=== PATIENT | female | born 1960 ===

== ENCOUNTER 2016-09-24 16:58 | Inpatient (IN) | payer MEDICAID ==
[~2016-09-24] VITALS: Ht 170.2 cm; Wt 145.1 kg
[~2016-09-24 16:58] MED LIST: ACID CONTROL150 MG PO; ASPIRIN81 MG PO; CATAPRES0.2 MG PO; CLONIDINE HCL0.2 MG PO; COREG12.5 MG PO; GLUCOPHAGE1000 MG PO; GLUCOTROL10 MG PO; LANTUS100 UNIT/1 SUBCUT; LASIX40 MG PO; LASIX80 MG PO; LISINOPRIL40 MG PO; MUCINEX600 MG PO; NORVASC10 MG PO; PLAVIX75 MG PO; PRAVACHOL40 MG PO; ULTRAM50 MG PO
[2016-09-27] MEDS ORDERED: CLEOCIN150 MG PO (14:47)
[2016-09-27] MEDS ORDERED: TAMIFLU75 MG PO (14:48)
[2016-09-27] MEDS ORDERED: TYLENOL325 MG PO ×2 (15:09→15:14)
== END 2016-09-27 16:45 | disposition short-term general hospital (02) | DRG 871 ==
LOC: ER 16:58 → IP 20:33
PROVIDERS: ADMIT Family Medicine
DX: A41.9 Sepsis, unspecified organism (principal); J18.9 Pneumonia, unspecified organism; Z68.43 Body mass index [BMI] 50.0-59.9, adult; E11.9 Type 2 diabetes mellitus without complications; R09.02 Hypoxemia; R11.2 Nausea with vomiting, unspecified; I25.10 Atherosclerotic heart disease of native coronary artery without angina pectoris; I10 Essential (primary) hypertension; E78.5 Hyperlipidemia, unspecified; M19.90 Unspecified osteoarthritis, unspecified site; K21.9 Gastro-esophageal reflux disease without esophagitis; E66.9 Obesity, unspecified; Z88.5 Allergy status to narcotic agent; Z88.4 Allergy status to anesthetic agent; Z91.018 Allergy to other foods; Z79.4 Long term (current) use of insulin; Z79.02 Long term (current) use of antithrombotics/antiplatelets; Z79.82 Long term (current) use of aspirin; Z79.899 Other long term (current) drug therapy; Z95.1 Presence of aortocoronary bypass graft; Z96.652 Presence of left artificial knee joint; Z85.528 Personal history of other malignant neoplasm of kidney; Z90.5 Acquired absence of kidney
CPT/HCPCS: A9150; J1650; J1815; J1956; J2175; J2405; J2543